=== PATIENT | female | born 1960 | race Caucasian/White ===

== ENCOUNTER → 2017-02-23 | Outpatient (CLI) | payer MEDICARE ==
[~2017-02-23] MED LIST: ASPIRIN325 M2 PO; CETIRIZINE10 MG PO; DAYPRO600 M1 PO; HYDROCODONE BIT1 T11 PO; KEFLEX500 MG PO; LIPITOR20 MG PO; Lovenox40 MG/0.4 SC; OMEGA-31000 M1 PO; PREDNICOT20 MG PO; Percocet 325 MG1 TAB PO; ROBAXIN750 MG PO; VICODIN 500 MG-1 TAB PO; VITAMIN A8000 UNIT PO; VITAMIN B 12 PO; VITAMIN D32000 UNI1 PO; WALKER DEVI; ZESTRIL10 MG PO; ZOFRAN ODT8 M1 PO; Zofran4 MG PO
== END | disposition home or self-care (01) ==
LOC: ORTHO 10:05
DX: Z96.642 Presence of left artificial hip joint (principal)

== ENCOUNTER → 2017-08-22 | Outpatient (CLI) | payer MEDICARE ==
[2017-08-22 15:11] LABS: ALBUMIN 3.8 gm/dl (3.1-4.5); ALKALINE PHOSPHATASE 87 U/L (45-117); BUN 15 mg/dl (7-24); CHLORIDE 108 mmol/L (98-107); CHOLESTEROL 165 mg/dL (<200); CREATININE 0.99 mg/dL (0.55-1.02); HDL CHOLESTEROL 58 mg/dl (40-60); LDL CHOLESTEROL 79 mg/dL (9-159); POTASSIUM 3.5 mmol/L (3.5-5.1); SGOT/AST 24 IU/L (3-35); SGPT/ALT 32 U/L (12-78); SODIUM 142 mmol/L (136-145); TOTAL PROTEIN 8.2 gm/dL (6.4-8.2); TRIGLYCERIDES 142 mg/dl (<150); VLDL CHOLESTEROL 28 mg/dL (6-40)
== END | disposition home or self-care (01) ==
LOC: MAMMO 08-07 16:20 → LAB 00:40 → MAMMO 14:20 → LAB 14:20
PROVIDERS: General Practice
DX: Z12.31 Encounter for screening mammogram for malignant neoplasm of breast (principal); R79.89 Other specified abnormal findings of blood chemistry; E55.9 Vitamin D deficiency, unspecified; Z68.42 Body mass index [BMI] 45.0-49.9, adult

== ENCOUNTER → 2018-02-04 | Outpatient (CLI) | payer MEDICARE ==
[2018-02-04 11:18] LABS: BASO % 0.4 % (0.0-1.0); EOS # 0.1 10*3/uL (0.0-0.4); EOS % 1.4 % (1.0-4.0); HEMATOCRIT 43.1 % (37.0-47.0); HEMOGLOBIN 13.9 g/dl (12.0-16.0); LYMPH # 1.9 10*3/uL (1.3-4.4); LYMPH % 26.5 % (27.0-41.0); MEAN CELL VOLUME 91.1 fl (81.0-99.0); MEAN CORPUSCULAR HGB 29.4 pg (27.0-31.0); MEAN CORPUSCULAR HGB CONC 32.3 g/dl (33.0-37.0); MEAN PLATELET VOLUME 11.3 fl (9.6-12.3); MONO # 0.6 10*3/uL (0.1-1.0); MONO % 8.5 % (3.0-9.0); NEUT # 4.5 10*3/uL (2.3-7.9); NEUT % 62.9 % (47.0-73.0); PLATELET COUNT AUTOMATED 188 10*3/uL (130-400); RED BLOOD COUNT 4.73 10*6/uL (4.10-5.10); WHITE BLOOD COUNT 7.1 10*3/uL (4.8-10.8)
[2018-02-04 11:54] LABS: ALBUMIN 3.5 gm/dl (3.1-4.5); BUN 16 mg/dl (7-24); CHLORIDE 105 mmol/L (98-107); POTASSIUM 3.9 mmol/L (3.5-5.1); SODIUM 139 mmol/L (136-145)
[2018-02-04 12:07] LABS: ALKALINE PHOSPHATASE 100 U/L (45-117); CHOLESTEROL 161 mg/dL (<200); CREATININE 1.07 mg/dL (0.55-1.02); HDL CHOLESTEROL 51 mg/dl (40-60); LDL CHOLESTEROL 73 mg/dL (9-159); SGOT/AST 32 IU/L (3-35); SGPT/ALT 47 U/L (12-78); TRIGLYCERIDES 185 mg/dl (<150); VLDL CHOLESTEROL 37 mg/dL (6-40)
== END | disposition home or self-care (01) ==
LOC: LAB 10:25
PROVIDERS: Nurse Practitioner Family
DX: E78.2 Mixed hyperlipidemia (principal); I10 Essential (primary) hypertension

== ENCOUNTER → 2018-02-13 | Outpatient (CLI) | payer MEDICARE | END | disposition home or self-care (01) | LOC: ORTHO 01:28 | DX: M79.641 Pain in right hand (principal); M79.89 Other specified soft tissue disorders ==

== ENCOUNTER → 2018-03-08 | Outpatient (CLI) | payer MEDICARE | END | disposition home or self-care (01) | LOC: ORTHO 01:59 | DX: M85.862 Other specified disorders of bone density and structure, left lower leg (principal); Z96.652 Presence of left artificial knee joint ==

== ENCOUNTER → 2021-03-04 | Outpatient (CLI) | payer MEDICARE ==
[2021-03-04 08:32] LABS: HEMATOCRIT 44.4 % (37.0-47.0); MEAN CELL VOLUME 90.4 fl (81.0-99.0); MEAN CORPUSCULAR HGB 28.3 pg (27.0-31.0); MEAN CORPUSCULAR HGB CONC 31.3 g/dl (33.0-37.0); MEAN PLATELET VOLUME 10.9 fl (9.6-12.3); RED BLOOD COUNT 4.91 10*6/uL (4.10-5.10); WHITE BLOOD COUNT 5.7 10*3/uL (4.8-10.8)
[2021-03-04 08:45] LABS: ALBUMIN 3.6 gm/dl (3.1-4.5); CREATININE 1.26 mg/dL (0.55-1.02); POTASSIUM 3.8 mmol/L (3.5-5.1); TOTAL PROTEIN 7.7 gm/dL (6.4-8.2)
[2021-03-04 08:52] LABS: THYROID STIM HORMONE (HS) 2.78 uIU/ml (0.358-4.75)
== END | disposition home or self-care (01) ==
LOC: LAB 08:08
PROVIDERS: ATTEND Internal Medicine
DX: I10 Essential (primary) hypertension (principal); E78.2 Mixed hyperlipidemia; Z79.899 Other long term (current) drug therapy

== ENCOUNTER → 2022-01-24 | Outpatient (CLI) | payer MEDICARE ==
[2022-01-24 09:10] LABS: HEMATOCRIT 44.2 % (37.0-47.0); MEAN CELL VOLUME 90.6 fl (81.0-99.0); MEAN CORPUSCULAR HGB 28.9 pg (27.0-31.0); MEAN CORPUSCULAR HGB CONC 31.9 g/dl (33.0-37.0); RED BLOOD COUNT 4.88 10*6/uL (4.10-5.10); RED CELL DISTRI WIDTH 13.1 % (0-14.5); WHITE BLOOD COUNT 6.2 10*3/uL (4.8-10.8)
[2022-01-24 09:27] LABS: CREATININE 1.35 mg/dL (0.55-1.02); POTASSIUM 3.8 mmol/L (3.5-5.1); TOTAL PROTEIN 7.6 gm/dL (6.4-8.2)
[2022-01-24 09:36] LABS: THYROID STIM HORMONE (HS) 3.89 uIU/ml (0.358-4.75)
== END | disposition home or self-care (01) ==
LOC: LAB 08:25
PROVIDERS: ATTEND Internal Medicine
DX: I10 Essential (primary) hypertension (principal); E78.2 Mixed hyperlipidemia

== ENCOUNTER → 2022-12-12 | Outpatient (CLI) | payer OTHER | END | disposition home or self-care (01) | LOC: MAMMO 00:49 | PROVIDERS: ATTEND Internal Medicine | DX: Z12.31 Encounter for screening mammogram for malignant neoplasm of breast (principal); N64.9 Disorder of breast, unspecified ==

== ENCOUNTER → 2024-08-11 | Outpatient (CLI) | payer OTHER | END | disposition home or self-care (01) | LOC: RAD 11:00 | PROVIDERS: ATTEND Nurse Practitioner Family | DX: M19.012 Primary osteoarthritis, left shoulder (principal); M25.512 Pain in left shoulder ==

== ENCOUNTER → 2024-10-10 | Outpatient (CLI) | payer OTHER | END | disposition home or self-care (01) | LOC: MRI 02:21 | PROVIDERS: ATTEND Nurse Practitioner Family | DX: S43.312 Subluxation of left scapula (principal); M75.122 Complete rotator cuff tear or rupture of left shoulder, not specified as traumatic; M25.512 Pain in left shoulder; X58.XXXA Exposure to other specified factors, initial encounter; Y93.89 Activity, other specified; Y92.89 Other specified places as the place of occurrence of the external cause; Y99.8 Other external cause status ==

== ENCOUNTER 2025-05-27 18:30 | Inpatient (IN) | payer OTHER, MEDICAID ==
[~2025-05-27] VITALS: Ht 157.5 cm; Wt 108.0 kg
[2025-05-27 18:38] VITALS: BP 137/61
[2025-05-27] MEDS ORDERED: Ondansetron8 MG PO (18:57)
[2025-05-27] MEDS ORDERED: HYDROCHLOROTH12.5 M2 PO (18:58)
[2025-05-27] MEDS ORDERED: Ondansetron Hydrochloride 4 MG/2 ML VIAL IV ONE (19:00)
[2025-05-27] MEDS ORDERED: SODIUM CHLORIDE 0.9% 1,000 ML IV ONE (19:00)
[2025-05-27 19:57] LABS: BUN 35.0 mg/dl (9-23); SGPT/ALT 16.0 U/L (5-49)
[2025-05-27] MEDS ORDERED: POTASSIUM CHLORIDE 20 MEQ TAB PO ONE ×2 (21:25→21:45)
[2025-05-27 21:30] LABS: BILIRUBIN Negative (Negative); BLOOD 3+ (Negative); CLARITY Turbid (Clear); COLOR Orange (Yellow); KETONE Trace (Negative); LEUKO ESTERASE 3+ (Negative); NITRITE Negative (Negative); PH 5.5 (4.5-8.0); SPECIFIC GRAVITY 1.020 (1.001-1.030); UROBILINOGEN 1.0 E.U./dl (0.0-1.0)
[2025-05-27 21:45] LABS: BACTERIA 3+; RBC 21-30 rbc/hpf (0-2); WBC TNTC wbc/hpf (0-5)
[2025-05-27] MEDS ORDERED: LEVOFLOXACIN 150 ML IV ONE ×2 (22:10→22:40)
[2025-05-27 22:55] LABS: BASO # 0.0 10*3/uL (0.0-0.1); BASO % 0.1 % (0.0-1.0); EOS # 0.0 10*3/uL (0.0-0.4); EOS % 0.0 % (1.0-4.0); MEAN CELL VOLUME 93.8 fl (81.0-99.0); MEAN CORPUSCULAR HGB 30.6 pg (27.0-31.0); MEAN PLATELET VOLUME 11.1 fl (9.6-12.3); MONO # 0.8 10*3/uL (0.1-1.0); MONO % 5.8 % (3.0-9.0); NEUT # 12.4 10*3/uL (2.3-7.9); NEUT % 88.2 % (47.0-73.0); NUCLEATED RED BLOOD CELL 0.0 % (0.0-0.0); NUCLEATED RED BLOOD CELL 0.0 10*3/uL (0.0-0.0); PLATELET COUNT AUTOMATED 155 10*3/uL (130-400); RED CELL DISTRI WIDTH 12.1 % (0-14.5)
[2025-05-28] MEDS ORDERED: BISACODYL 10 MG SUPP R PRN (00:05)
[2025-05-28] MEDS ORDERED: BISACODYL 5 MG TAB PO PRN (00:05)
[2025-05-28] MEDS ORDERED: SODIUM CHLORIDE 0.9% 1,000 ML IV ONE (00:15)
[2025-05-28] MEDS ORDERED: SODIUM CHLORIDE 0.9% 1,000 ML IV SCH (00:15)
[2025-05-28 00:22] VITALS: BP 136/70
[2025-05-28 05:53] LABS: BASO # 0.0 10*3/uL (0.0-0.1); BASO % 0.3 % (0.0-1.0); EOS # 0.0 10*3/uL (0.0-0.4); EOS % 0.1 % (1.0-4.0); MEAN CELL VOLUME 95.5 fl (81.0-99.0); MEAN CORPUSCULAR HGB 30.6 pg (27.0-31.0); MEAN PLATELET VOLUME 11.1 fl (9.6-12.3); MONO # 0.8 10*3/uL (0.1-1.0); MONO % 7.2 % (3.0-9.0); NEUT # 10.0 10*3/uL (2.3-7.9); NEUT % 86.5 % (47.0-73.0); NUCLEATED RED BLOOD CELL 0.0 % (0.0-0.0); NUCLEATED RED BLOOD CELL 0.0 10*3/uL (0.0-0.0); PLATELET COUNT AUTOMATED 144 10*3/uL (130-400); RED CELL DISTRI WIDTH 12.1 % (0-14.5)
[2025-05-28 06:37] LABS: BUN 39.0 mg/dl (9-23)
[2025-05-28 06:44] LABS: CPK 112.0 U/L (34-171); FREE T4 0.91 ng/dl (0.89-1.76); LDL CHOLESTEROL 55.0 mg/dL (9-159)
[2025-05-28 06:45] LABS: VITAMIN D, 25-HYDROXY 14.0 ng/mL (30-100)
[2025-05-28] MEDS ORDERED: CIPROFLOXACIN 200 ML IV SCH (07:00)
[2025-05-28] MEDS ORDERED: MAGNESIUM SULFATE 50 ML IV ONE (07:15)
[2025-05-28] MEDS ORDERED: LATANOPROST2.5 ML OU (07:29)
[2025-05-28] MEDS ORDERED: MELOXICAM15 MG PO (07:30)
[2025-05-28 08:00] VITALS: BP 127/61
[2025-05-28] MEDS ORDERED: Metoclopramide Hydrochloride 10 MG/2 ML VIAL IV PRN (08:40)
[2025-05-28] MEDS ORDERED: ATORVASTATIN CALCIUM 20 MG TAB PO SCH (10:00)
[2025-05-28] MEDS ORDERED: APIXABAN 5 MG TAB PO SCH (10:00)
[2025-05-28] MEDS ORDERED: ASPIRIN 325 MG TAB PO SCH (10:00)
[2025-05-28] MEDS ORDERED: METOPROLOL SUCCINATE XR 25 MG TAB PO SCH (10:00)
[2025-05-28] MEDS ORDERED: Cholecalciferol 5,000 IU CAP (125 MCG) PO SCH (10:00)
[2025-05-28 12:00] VITALS: BP 103/64
[2025-05-28 16:00] VITALS: BP 102/51
[2025-05-28 20:00] VITALS: BP 100/65
[2025-05-29] VITALS: BP 102/55
[2025-05-29 05:13] LABS: BUN 38.0 mg/dl (9-23)
[2025-05-29 05:57] LABS: BASO # 0.0 10*3/uL (0.0-0.1); BASO % 0.3 % (0.0-1.0); EOS # 0.1 10*3/uL (0.0-0.4); EOS % 0.8 % (1.0-4.0); MEAN CELL VOLUME 98.5 fl (81.0-99.0); MEAN CORPUSCULAR HGB 30.5 pg (27.0-31.0); MEAN PLATELET VOLUME 11.8 fl (9.6-12.3); MONO # 0.9 10*3/uL (0.1-1.0); MONO % 11.9 % (3.0-9.0); NEUT # 5.6 10*3/uL (2.3-7.9); NEUT % 73.6 % (47.0-73.0); NUCLEATED RED BLOOD CELL 0.0 % (0.0-0.0); NUCLEATED RED BLOOD CELL 0.0 10*3/uL (0.0-0.0); PLATELET COUNT AUTOMATED 135 10*3/uL (130-400); RED CELL DISTRI WIDTH 12.5 % (0-14.5)
[2025-05-29] MEDS ORDERED: CIPROFLOXACIN 200 ML IV SCH (06:00)
[2025-05-29 08:00] VITALS: BP 131/65
[2025-05-29] MEDS ORDERED: VITAMIN D3125 MC1 PO (10:51)
[2025-05-29] MEDS ORDERED: ELIQUIS5 M1 PO (10:51)
[2025-05-29] MEDS ORDERED: METOPROLOL SUCC25 M2 PO (10:51)
[2025-05-29] MEDS ORDERED: VIBRA-TAB100 MG PO (10:52)
[2025-05-29 12:00] VITALS: BP 99/56
== END 2025-05-29 13:06 | disposition home or self-care (01) | DRG 640 ==
LOC: ED 18:30 → 4E 22:42 → EDHOLD 22:42 → 4E 23:23
PROVIDERS: Nurse Practitioner Family; Student in an Organized Health Care Education/Training Program; ADMIT Internal Medicine; ATTEND Internal Medicine
DX: E86.0 Dehydration (principal); N17.0 Acute kidney failure with tubular necrosis; N30.01 Acute cystitis with hematuria; Z68.41 Body mass index [BMI] 40.0-44.9, adult; D72.829 Elevated white blood cell count, unspecified; E87.6 Hypokalemia; I10 Essential (primary) hypertension; E78.5 Hyperlipidemia, unspecified; D64.9 Anemia, unspecified; E66.9 Obesity, unspecified; E78.00 Pure hypercholesterolemia, unspecified; H35.52 Pigmentary retinal dystrophy; R82.71 Bacteriuria; E66.01 Morbid (severe) obesity due to excess calories; Z96.652 Presence of left artificial knee joint; Z88.8 Allergy status to other drugs, medicaments and biological substances; Z91.09 Other allergy status, other than to drugs and biological substances; Z79.899 Other long term (current) drug therapy; Z98.42 Cataract extraction status, left eye; Z98.41 Cataract extraction status, right eye; Z79.01 Long term (current) use of anticoagulants; Z90.49 Acquired absence of other specified parts of digestive tract; Z82.5 Family history of asthma and other chronic lower respiratory diseases; Z83.3 Family history of diabetes mellitus